=== PATIENT | male | born 1980 | race American Indian/Alaskan Native ===

== ENCOUNTER 2021-03-26 11:24 | Emergency (ER) | payer SELFPAY ==
[2021-03-26 11:33] VITALS: BP 125/63
[2021-03-26] MEDS ORDERED: TETANUS,DIPH,PERTUSS(ACELL) VACCINE 0.5 ML SYRINGE IM ONE (12:27)
[2021-03-26] MEDS ORDERED: HYDROcodone/ACETAMINOPHEN 10-325MG TAB PO ONE (12:27)
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
== END 2021-03-26 14:19 | disposition left against medical advice (07) ==
LOC: ED 11:24
DX: S50.812A Abrasion of left forearm, initial encounter (principal); R07.81 Pleurodynia; R51.9 Headache, unspecified; M25.512 Pain in left shoulder; V89.2XXA Person injured in unspecified motor-vehicle accident, traffic, initial encounter; Y93.89 Activity, other specified; Y92.488 Other paved roadways as the place of occurrence of the external cause; Y99.8 Other external cause status
CPT/HCPCS: 90471; 90715; 99283

== ENCOUNTER 2021-03-27 18:12 | Emergency (ER) | payer SELFPAY ==
[2021-03-27 18:17] VITALS: BP 127/69
[2021-03-27] MEDS ORDERED: IBUPROFEN 600 MG TAB PO ONE (18:50)
[2021-03-27] MEDS ORDERED: ACETAMINOPHEN 500 MG TAB PO ONE (18:50)
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
== END 2021-03-27 20:57 | disposition home or self-care (01) ==
LOC: ED 18:12
DX: S43.492A Other sprain of left shoulder joint, initial encounter (principal); M62.830 Muscle spasm of back; S00.83XA Contusion of other part of head, initial encounter; S10.93XA Contusion of unspecified part of neck, initial encounter; Z79.899 Other long term (current) drug therapy; V89.2XXA Person injured in unspecified motor-vehicle accident, traffic, initial encounter; Y93.89 Activity, other specified; Y92.488 Other paved roadways as the place of occurrence of the external cause; Y99.8 Other external cause status
CPT/HCPCS: 70450; 72125; 99284